=== PATIENT | male | born 1970 | race Caucasian/White ===

== ENCOUNTER → 2018-02-01 | Outpatient (CLI) | payer BC ==
[2018-02-01 12:50] LABS: Basophils # (auto) 0.1 uL; Basophils % (auto) 0.5 % (0.0-2.0); Eosinophils # (auto) 0.1 uL; Eosinophils % (auto) 0.5 % (0.0-7.0); Hematocrit 45.4 % (41.0-53.0); Hemoglobin 15.7 g/dL (13.5-17.5); Lymphocytes # (auto) 2.2 uL; Lymphocytes % (auto) 18.3 % (10.0-50.0); Mean Corpuscular Hemoglobin 29.8 pg (28.0-32.0); Mean Corpuscular Hgb Conc. 34.5 g/dL (32.0-36.0); Mean Corpuscular Volume 86.4 fL (80.0-100.0); Monocytes # (auto) 0.6 uL; Monocytes % (auto) 5.3 % (0.0-12.0); Neutrophils # (auto) 8.9 uL; Neutrophils % (auto) 75.4 % (37.0-80.0); Platelet Count (auto) 337 10^3/uL (140-450); Red Blood Cells 5.25 10^6/uL (4.5-5.90); Red Cell Distribution Width 12.4 % (11.8-14.3); White Blood Cell 11.9 10^3/uL (4.4-10.8)
[2018-02-01 13:21] LABS: Urine Bacteria NONE SEEN /hpf (None Seen); Urine Blood TRACE /uL (Negative); Urine Budding Yeast MODERATE /hpf (None Seen); Urine WBC 53 /hpf (0 - 3)
[2018-02-01 13:26] LABS: Alanine Aminotransferase 21 U/L (16-61); Albumin 3.6 g/dL (3.4-5.0); Alkaline Phosphatase 76 U/L (45-117); Anion Gap 11 (5-15); Aspartate Aminotransferase 12 U/L (15-37); BUN/Creatinine Ratio 14.6; Bilirubin, Total 0.4 mg/dL (0.2-1.0); Blood Urea Nitrogen 12 mg/dL (7-18); Calcium 8.8 mg/dL (8.5-10.1); Carbon Dioxide 21 mmol/L (21-32); Chloride 99 mmol/L (98-107); Cholesterol 282 mg/dL (< 200); GFR African American 129 mL/min; GFR Non-African American 107 mL/min; Glucose 285 mg/dL (74-106); HDL Cholesterol 40 mg/dL (40-59); Potassium 4.1 mmol/L (3.5-5.1); Sodium 131 mmol/L (136-145); Total Protein 8.3 g/dL (6.4-8.2); Triglycerides 635 mg/dL (< 150)
[2018-02-01 13:30] LABS: Free T4 (Free Thyroxine) 1.08 ng/dL (0.89-1.76)
== END | disposition home or self-care (01) ==
LOC: LAB 12:27
PROVIDERS: ATTEND Internal Medicine
DX: I10 Essential (primary) hypertension (principal); E11.9 Type 2 diabetes mellitus without complications
CPT/HCPCS: 36415; 80053; 80061; 81001; 82043; 82607; 83036; 84439; 84443; 85025; 85652

== ENCOUNTER 2018-06-02 23:12 | Inpatient (IN) | payer BC ==
[~2018-06-02] VITALS: Ht 190.5 cm; Wt 109.2 kg
[2018-06-03] MEDS ORDERED: InsuLIN REG 1unit/0.01ml Soln (100units/ml) IV ONE (00:15)
[2018-06-03] MEDS ORDERED: PIPERACILLIN-TAZOB 3.375GM 100 ML IV ONE (00:45)
[2018-06-03] MEDS ORDERED: SODIUM CHLORIDE 0.9% 1,000 ML IV ONE ×3 (00:45→05:00)
[2018-06-03 01:20] LABS: Basophils # (auto) 0 uL; Basophils % (auto) 0.4 % (0.0-2.0); Eosinophils # (auto) 0.1 uL; Eosinophils % (auto) 1.2 % (0.0-7.0); Hematocrit 39.4 % (41.0-53.0); Hemoglobin 13.4 g/dL (13.5-17.5); Lymphocytes # (auto) 2.6 uL; Lymphocytes % (auto) 21.2 % (10.0-50.0); Mean Corpuscular Hemoglobin 29.5 pg (28.0-32.0); Monocytes # (auto) 1.2 uL; Monocytes % (auto) 9.6 % (0.0-12.0); Neutrophils # (auto) 8.2 uL; Neutrophils % (auto) 67.6 % (37.0-80.0); Platelet Count (auto) 449 10^3/uL (140-450); Red Blood Cells 4.54 10^6/uL (4.5-5.90); Red Cell Distribution Width 12.8 % (11.8-14.3); White Blood Cell 12.1 10^3/uL (4.4-10.8)
[2018-06-03 01:34] LABS: Urine Bacteria NONE SEEN /hpf (None Seen); Urine Blood Negative /uL (Negative); Urine Specific Gravity 1.036 (1.001-1.035); Urine WBC 13 /hpf (0 - 3)
[2018-06-03 01:35] LABS: Albumin 2.8 g/dL (3.4-5.0); Calcium 8.4 mg/dL (8.5-10.1); Potassium 3.9 mmol/L (3.5-5.1)
[2018-06-03 01:44] LABS: BUN/Creatinine Ratio 12.2; Bilirubin, Total 0.3 mg/dL (0.2-1.0); Total Protein 7.9 g/dL (6.4-8.2)
[2018-06-03] MEDS ORDERED: LISI10TA6 PO (01:59)
[2018-06-03] MEDS ORDERED: ASPI-231 PO (01:59)
[2018-06-03] MEDS ORDERED: TRAM50TA2 PO (01:59)
[2018-06-03] MEDS ORDERED: GABA300C10 PO (01:59)
[2018-06-03] MEDS ORDERED: ATOR40TA52 PO (01:59)
[2018-06-03 02:04] LABS: Lactic Acid w/Reflex 2.6 mmol/L (0.4-2.0)
[2018-06-03] MEDS ORDERED: DEXTROSE (50%) 50ML SYRG IV PRN (05:00)
[2018-06-03] MEDS ORDERED: ONDANSETRON HCL 4 MG/2 ML VIAL IV PRN (05:00)
[2018-06-03] MEDS ORDERED: VANCOMYCIN PER PHARMACY 0 MG IV SCH (05:00)
[2018-06-03] MEDS ORDERED: HYDROcodone-ACET 5/325MG TAB PO PRN (05:00)
[2018-06-03] MEDS ORDERED: ACETAMINOPHEN 500 MG TAB PO PRN (05:00)
[2018-06-03] MEDS ORDERED: VANCOMYCIN 1GM/250ML 250 ML IV ONE ×2 (06:30→12:29)
[2018-06-03 07:12] LABS: Basophils # (auto) 0 uL; Basophils % (auto) 0.4 % (0.0-2.0); Eosinophils # (auto) 0.1 uL; Eosinophils % (auto) 1.4 % (0.0-7.0); Hematocrit 36.9 % (41.0-53.0); Hemoglobin 12.9 g/dL (13.5-17.5); Lymphocytes # (auto) 2.2 uL; Lymphocytes % (auto) 21.4 % (10.0-50.0); Mean Corpuscular Hemoglobin 29.9 pg (28.0-32.0); Mean Corpuscular Hgb Conc. 34.9 g/dL (32.0-36.0); Mean Corpuscular Volume 85.8 fL (80.0-100.0); Monocytes # (auto) 1.1 uL; Neutrophils # (auto) 6.7 uL; Neutrophils % (auto) 65.8 % (37.0-80.0); Nucleated Red Blood Cells % 0.1 %; Platelet Count (auto) 403 10^3/uL (140-450); Red Cell Distribution Width 12.6 % (11.8-14.3); White Blood Cell 10.2 10^3/uL (4.4-10.8)
[2018-06-03 07:29] LABS: BUN/Creatinine Ratio 14.8; Calcium 8.2 mg/dL (8.5-10.1)
[2018-06-03] MEDS: PIPERACILLIN-TAZOB 3.375GM 100 ML IV SCH ×3 (07:53→18:28)
[2018-06-03] MEDS: GABAPENTIN 300 MG CAP PO SCH ×3 (07:53→22:28)
[2018-06-03] MEDS: ACCU-CHEK COMFORT CURVE STRIP VI SCH ×4 (08:00→22:30)
[2018-06-03] MEDS: InsuLIN REG 1unit/0.01ml Soln (100units/ml) SC SCH ×4 (08:37→22:30)
[2018-06-03] MEDS: LISINOPRIL 10 MG TAB PO SCH (10:14)
[2018-06-03] MEDS: ASPirin-EC 81 mg tab PO SCH (10:14)
[2018-06-03] MEDS ORDERED: traMADol HCL 50 MG TAB PO PRN (12:15)
[2018-06-03] MEDS ORDERED: ENOXAPARIN SOD 40 MG/0.4 ML SYRINGE SC ONE (12:15)
[2018-06-03] MEDS: VANCOMYCIN 1,500 MG in D5W 5% 250 ML IV SCH (12:34)
[2018-06-03] MEDS ORDERED: SILVER SULFADIAZINE 1 % TOPICAL CREAM 50GM TOP SCH (12:54)
[2018-06-03] MEDS: traMADol HCL 50 MG TAB PO PRN ×2 (13:24→22:28)
[2018-06-03 20:00] VITALS: BP 141/70
[2018-06-03 22:00] VITALS: BP 141/70
[2018-06-03] MEDS ORDERED: INSULIN LANTUS (GLARGINE) 1 /0.01ml (100units/ml) SC SCH (22:00)
[2018-06-03] MEDS: ATORVASTATIN 20 MG TAB PO SCH (22:28)
[2018-06-04] MEDS: PIPERACILLIN-TAZOB 3.375GM 100 ML IV SCH ×4 (01:02→17:36)
[2018-06-04] MEDS: VANCOMYCIN 1,500 MG in D5W 5% 250 ML IV SCH ×2 (01:02→13:54)
[2018-06-04] MEDS: InsuLIN REG 1unit/0.01ml Soln (100units/ml) SC SCH ×5 (01:03→17:00)
[2018-06-04] MEDS: ACCU-CHEK COMFORT CURVE STRIP VI SCH ×6 (01:03→22:23)
[2018-06-04 05:00] VITALS: BP 127/68
[2018-06-04] MEDS: GABAPENTIN 300 MG CAP PO SCH ×3 (05:44→22:14)
[2018-06-04] MEDS: traMADol HCL 50 MG TAB PO PRN ×2 (05:45→17:36)
[2018-06-04 09:00] VITALS: BP_SYST 117; BP_SYST 149; BP_DIAS 45; BP_DIAS 69
[2018-06-04] MEDS: ENOXAPARIN SOD 40 MG/0.4 ML SYRINGE SC SCH (10:42)
[2018-06-04] MEDS: SILVER SULFADIAZINE 1 % TOPICAL CREAM 50GM TOP SCH (10:43)
[2018-06-04] MEDS: LISINOPRIL 10 MG TAB PO SCH (10:44)
[2018-06-04] MEDS: ASPirin-EC 81 mg tab PO SCH (10:45)
[2018-06-04 13:00] VITALS: BP 125/73
[2018-06-04] MEDS ORDERED: DEXTROSE (50%) 50ML SYRG IV PRN (13:00)
[2018-06-04 17:00] VITALS: BP 145/65
[2018-06-04 22:00] VITALS: BP 126/66
[2018-06-04] MEDS ORDERED: InsuLIN REG 1unit/0.01ml Soln (100units/ml) SC SCH (22:00)
[2018-06-04] MEDS ORDERED: INSULIN LANTUS (GLARGINE) 1 /0.01ml (100units/ml) SC SCH (22:00)
[2018-06-04] MEDS: ATORVASTATIN 20 MG TAB PO SCH (22:14)
[2018-06-05] MEDS: PIPERACILLIN-TAZOB 3.375GM 100 ML IV SCH ×3 (00:11→11:29)
[2018-06-05] MEDS: VANCOMYCIN 1,500 MG in D5W 5% 250 ML IV SCH ×2 (00:11→11:30)
[2018-06-05 05:00] VITALS: BP 120/71
[2018-06-05] MEDS: GABAPENTIN 300 MG CAP PO SCH ×2 (05:52→14:41)
[2018-06-05] MEDS: traMADol HCL 50 MG TAB PO PRN ×2 (05:53→16:53)
[2018-06-05] MEDS: InsuLIN REG 1unit/0.01ml Soln (100units/ml) SC SCH ×3 (06:48→17:30)
[2018-06-05] MEDS: ACCU-CHEK COMFORT CURVE STRIP VI SCH ×3 (06:48→17:00)
[2018-06-05] MEDS ORDERED: INSULIN LANTUS (GLARGINE) 1 /0.01ml (100units/ml) SC SCH (07:00)
[2018-06-05 08:12] VITALS: BP 139/82
[2018-06-05] MEDS: ENOXAPARIN SOD 40 MG/0.4 ML SYRINGE SC SCH (10:08)
[2018-06-05] MEDS: LISINOPRIL 10 MG TAB PO SCH (10:09)
[2018-06-05] MEDS: SILVER SULFADIAZINE 1 % TOPICAL CREAM 50GM TOP SCH (10:09)
[2018-06-05] MEDS: ASPirin-EC 81 mg tab PO SCH (10:16)
[2018-06-05 11:36] VITALS: BP 129/71
[2018-06-05] MEDS ORDERED: LEVO750T64 PO (13:20)
[2018-06-05] MEDS ORDERED: LEVOFLOXACIN 250 MG TAB PO ONE (13:30)
[2018-06-05] MEDS ORDERED: PIPERACILLIN-TAZOB 3.375GM 100 ML IV SCH (14:00)
[2018-06-05 16:24] VITALS: BP 129/71
[2018-06-05 16:38] VITALS: BP 146/86
== END 2018-06-05 18:50 | disposition home or self-care (01) | DRG 603 ==
LOC: ER 23:12 → OVERFLOW 23:13 → WEST WING 06-03 20:10
PROVIDERS: ADMIT Nurse Practitioner Family; ATTEND Internal Medicine
DX: L03.116 Cellulitis of left lower limb (principal); E44.0 Moderate protein-calorie malnutrition; L03.115 Cellulitis of right lower limb; L97.519 Non-pressure chronic ulcer of other part of right foot with unspecified severity; E11.621 Type 2 diabetes mellitus with foot ulcer; E11.40 Type 2 diabetes mellitus with diabetic neuropathy, unspecified; I11.0 Hypertensive heart disease with heart failure; L97.529 Non-pressure chronic ulcer of other part of left foot with unspecified severity; E11.65 Type 2 diabetes mellitus with hyperglycemia; Z68.30 Body mass index [BMI] 30.0-30.9, adult; B95.61 Methicillin susceptible Staphylococcus aureus infection as the cause of diseases classified elsewhere; I50.9 Heart failure, unspecified; E78.5 Hyperlipidemia, unspecified; Z79.4 Long term (current) use of insulin; Z79.82 Long term (current) use of aspirin; Z79.899 Other long term (current) drug therapy; Z83.3 Family history of diabetes mellitus; Z95.2 Presence of prosthetic heart valve; Z17.1 Estrogen receptor negative status [ER-]; E66.01 Morbid (severe) obesity due to excess calories; Z82.49 Family history of ischemic heart disease and other diseases of the circulatory system; L55.1 Sunburn of second degree
CPT/HCPCS: 36415; 73630; 80048; 80053; 80202; 80320; 81001; 82962; 83036; 83605; 85025; 87040; 87077; 87186; 87205; 93926; 94761; 96361; 96365; 96367; 96375; J1815; J2543; J7060